=== PATIENT | male | born 2000 ===

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

== ENCOUNTER 2018-05-02 18:14 | Emergency (ER) | payer OTHER ==
[2018-05-02 18:14] VITALS: BMI 20.3
[2018-05-02 18:41] VITALS: BP 129/79; PULSE 87; RESP 18; TEMP 97.8; O2SAT 100
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
[2018-05-02] MEDS ORDERED: Lidocaine 1% Inj (20ml) ONE (19:47)
[2018-05-02] MEDS: Lidocaine 1% Inj (20ml) IJ ONE (19:57)
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
== END 2018-05-02 21:31 | disposition home or self-care (01) ==
LOC: H.ER 18:14
DX: S51.811A Laceration without foreign body of right forearm, initial encounter (principal); W25.XXXA Contact with sharp glass, initial encounter; Y92.89 Other specified places as the place of occurrence of the external cause

== ENCOUNTER 2018-05-09 14:08 | Emergency (ER) | payer OTHER ==
[2018-05-09 14:08] VITALS: BMI 20.3
[2018-05-09 14:19] VITALS: BP 109/72; PULSE 61; RESP 18; TEMP 98; O2SAT 99
--- NOTE | 2018-05-09 15:24 | ED PDOC ---
HPI: Wound Care - HPI Time Seen by Provider: 05/09/18 14:37 Chief Complaint (Nursing): Suture/Staple Removal Chief Complaint (Provider): Suture/Staple Removal History Per: Patient Additional Complaint(s): 17 y/o male presents to ED for suture removal. Patient was seen here on 05/02/18 after injuring his right hand and forearm. At that time he had 3 lacerations to posterior right hand and had placed 2 sutures to his right 2nd MCP, 3 sutures to 2nd MCP and 5 sutures to his right 4th MCP. Wound has no erythema or drainage. Past Medical History Reviewed: Historical Data, Nursing Documentation, Vital Signs Vital Signs: Last Vital Signs Temp 98 F 05/09/18 14:17 Pulse 61 05/09/18 14:17 Resp 18 05/09/18 14:17 BP 109/72 05/09/18 14:17 Pulse Ox 99 05/09/18 14:17 - Medical History PMH: Anemia, Asthma Denies: Chronic Kidney Disease - Family History Family History: States: Unknown Family Hx - Home Medications Home Medications: Ambulatory Orders Medication Instructions Recorded Famotidine [Pepcid] 20 mg PO DAILY #14 tab 08/02/17 Acetaminophen [Acetaminophen 8 650 mg PO Q8 PRN #21 tablet.er 05/02/18 Hour] Bacitracin Ointment [Bacitracin] 1 applic TOP BID #1 tube 05/02/18 Cephalexin [Keflex] 500 mg PO TID #21 capsule 05/02/18 - Allergies Allergies/Adverse Reactions: Allergies Allergy/AdvReac Type Severity Reaction Status Date / Time No Known Allergies Allergy Verified 05/02/18 18:38 Review of Systems ROS Statement: Except As Marked, All Systems Reviewed And Found Negative Skin: Positive for: Other (10 sutures to right hand) Physical Exam - Reviewed Nursing Documentation Reviewed: Yes Vital Signs Reviewed: Yes - Physical Exam Appears: Positive for: Well, Non-toxic, No Acute Distress Head Exam: Positive for: ATRAUMATIC Skin: Positive for: Normal Color, Warm, Dry Eye Exam: Positive for: EOMI, Normal appearance, PERRL Cardiovascular/Chest: Negative for: Murmur, Bradycardia, Tachycardia Respiratory: Positive for: Normal Breath Sounds. Negative for: Respiratory Distress Extremity: Positive for: Normal ROM, Other (wound looks fine; no erythema or drainage). Negative for: Pedal Edema, Deformity Neurologic/Psych: Positive for: Alert, Oriented. Negative for: Motor/Sensory Deficits - ECG O2 Sat by Pulse Oximetry: 99 (RA) Pulse Ox Interpretation: Normal Medical Decision Making Medical Decision Making: Time: Initial Impression: suture removal Initial Plan: Sutures were removed without complication. No erythema or drainage at site of wound. patient tolerated procedure well. Scribe Attestation: Documented by Maurice Norton, acting as a scribe for Roberta Blackmon PA-C. Provider Scribe Attestation: All medical record entries made by the Scribe were at my direction and perso jose dictated by me. I have reviewed the chart and agree that the record accurately reflects my personal performance of the history, physical exam, medical decision making, and the department course for this patient. I have also personally directed, reviewed, and agree with the discharge instructions and disposition. Disposition - Clinical Impression Clinical Impression: Removal of suture - Patient ED Disposition Is Patient to be Admitted: No Counseled Patient/Family Regarding: Diagnosis, Need For Followup - Disposition Disposition: Routine/Home Disposition Time: 15:23 Condition: GOOD Instructions: Stitches Removal Forms: [employer] (Vietnamese)
== END 2018-05-09 15:25 | disposition home or self-care (01) ==
LOC: H.ER 14:08
DX: Z48.02 Encounter for removal of sutures (principal)